=== PATIENT | male | born 1975 | race Caucasian/White ===

== ENCOUNTER 2024-06-13 17:35 | Emergency (ER) | payer SELFPAY ==
[2024-06-13 18:24] LABS: Absolute Eosinophils 0.1 K/uL (0-0.5); Absolute Lymphocytes (CBC) 1.5 K/uL (0.7-4.9); Absolute Monocytes 0.4 K/uL (0.1-1.3); Absolute Neutrophil 4.3 K/uL (1.8-8.0); Basophils % 0.4 % (0-1.3); Eosinophils % 1.7 % (0-4.4); Hematocrit 41.3 % (39.6-49.0); Hemoglobin 14.4 g/dL (13.6-17.9); Lymphocytes % 23.8 % (15.3-44.8); MCH 29.9 pg (27.0-35.0); MCHC 34.9 g/dL (32.0-36.0); MCV 85.8 fL (80-100); MPV 7.3 fL (7.6-11.3); Monocytes % 6.5 % (3.3-12.3); Neutrophils % 67.6 % (41.7-73.7); Nucleated Red Blood Cells % 0.1 % (0-0); Platelets 154 thou/uL (152-406); RBC Red Blood Cell Count 4.82 M/uL (4.33-5.43); Red Cell Distribution Width 14.9 % (12.1-15.2)
--- NOTE | 2024-06-13 18:40 | RAD REPORT ---
EXAM DESCRIPTION: RAD - Chest Single View - 06/13/2024 6:21 pm CLINICAL HISTORY: CHEST PAIN COMPARISON: No comparisons FINDINGS: Lines: None. Lungs: No evidence of edema or pneumonia. Pleural: No significant pleural effusions or pneumothorax. Cardiac: The heart size is within normal limits. Mediastinum: Within normal limits. Bones: No acute fractures. Other: None IMPRESSION: No acute cardiopulmonary disease.
[2024-06-13 18:44] LABS: ALT/SGPT 24 U/L (16-61); Albumin 3.7 g/dL (3.4-5.0); Albumin/Globulin Ratio 1.2 (1.1-1.8); Alkaline Phosphatase 61 U/L (45-117); Anion Gap 9.3 mEq/L (5.0-15.0); BUN Blood Urea Nitrogen 20 mg/dL (7-18); Bicarbonate 29 mEq/L (21-32); Bilirubin Direct 0.2 mg/dL (0-0.2); Bilirubin Indirect, Calculated 0.7 mg/dL (0.2-0.8); Bilirubin Total 0.9 mg/dL (0.2-1.0); Globulin 3.1 g/dL (2.3-3.5); Glomerular Filtration Rate 103 ml/min (=/>90); Glucose Level 315 mg/dL (74-106); Magnesium 1.9 mg/dL (1.6-2.4); Potassium 4.3 mEq/L (3.5-5.1); Protein, Total 6.8 g/dL (6.4-8.2); Sodium Level 134 mEq/L (136-145); Troponin High Sensitivity 8.6 pg/mL (<58.9)
[2024-06-13 18:46] LABS: AST/SGOT < 10 U/L (15-37)
[2024-06-13] MEDS ORDERED: ASPIRIN 81 MG CHEWABLE TABLET ONE (19:25)
[2024-06-13] MEDS ORDERED: NA CHLORIDE 0.9% 1,000 ML ONE (20:23)
--- NOTE | 2024-06-13 21:11 | EDPHYS ---
Physician Documentation [facility] [place] Name: Michael Vu III Age: 49 yrs Sex: Male : 1975 Arrival Date: 06/13/2024 Time: 17:35 Bed 7 Private MD: ED Physician Dixon Lane HPI: 06/13 21:12 This 49 yrs old Male presents to ER via Ambulatory with complaints of Chest Pain. kb 21:12 PT is a 49 year old male who presents for left sided chest pain that started at 1600 kb today. States pain is worse with deep breath. Denies injury, trauma, nuasea, vomiting, fever, cough, congestion, shortness of breath. Historical: - Allergies: 17:53 PENICILLINS; nj1 17:53 Bactrim; nj1 - PMHx: 17:53 None; nj1 - PSHx: 17:53 Operative procedure on knee; nj1 - Immunization history:: Client reports having NOT received the Covid vaccine. - Infectious Disease History:: Denies. - Social history:: Smoking status: Patient denies any tobacco usage or history of. ROS: 17:56 Constitutional: As per HPI kb Exam: 17:55 Constitutional: This is a well developed, well nourished patient who is awake, alert, kb and in no acute distress. Head/Face: Normocephalic, atraumatic. ENT: Moist Mucous membranes Cardiovascular: Regular rate Respiratory: Respirations even and unlabored. No increased work of breathing. Talking in full sentences Abdomen/GI: Soft, non-tender. No distention Skin: Warm, dry with normal turgor. Normal color. MS/ Extremity: Pulses equal, no cyanosis. Neurovascular intact. Full, normal range of motion. Neuro: Awake and alert, GCS 15, oriented to person, place, time, and situation. Moves all extremities. Normal gait. 17:55 ECG was reviewed by the Attending Physician. Vital Signs: 17:51 BP 177 / 99; Pulse 85; Resp 18; Temp 97.8(O); Pulse Ox 95% ; Weight 122.47 kg; Height 6 nj1 ft. 1 in. ; Pain 6/10; 20:49 BP 160 / 82; Pulse 80; Resp 16; Temp 98; Pulse Ox 100% ; jm12 17:51 Body Mass Index 35.62 (122.47 kg, 185.42 cm) nj1 17:51 Pain Scale: Adult nj1 MDM: 17:42 Patient medically screened. kb 21:10 Differential diagnosis: acute MN, abnormal ekg, pleurisy, chest wall pain. Data kb reviewed: vital signs, nurses notes. Consideration of Admission/Observation Escalation of care including admission/observation considered. admission considered for chest pain, but serial troponin normal, HEART score 2. Test considered but Not performed: CT: ct chest to rule out pe considered but pt denies shortness of breath and d-dimer normal. Historians other than the Patient: Spouse/Significant Other: . Counseling: I had a detailed discussion with the patient and/or guardian regarding the historical points, exam findings, and any diagnostic results supporting the discharge/admit diagnosis, lab results, radiology results, the need for outpatient follow up, a family practitioner, to return to the emergency department if symptoms worsen or persist or if there are any questions or concerns that arise at home. 21:16 Special discussion: I have referred the patient to see his PCP for further evaluation kb of high blood pressure. ED course: Pt states he has been diagnosed with diabetes, but is trying to control it with diet. Metformin considered, but pt does not want any medications for diabetes at this time. . 06/13 17:55 Order name: Basic Metabolic Panel; Complete Time: 19:10 kb 06/13 17:55 Order name: CBC with Diff; Complete Time: 18:36 kb 06/13 17:55 Order name: D-Dimer; Complete Time: 19:10 kb 06/13 17:55 Order name: LFT's; Complete Time: 19:10 kb 06/13 17:55 Order name: Magnesium; Complete Time: 19:10 kb 06/13 17:55 Order name: Troponin HS; Complete Time: 19:10 kb 06/13 20:19 Order name: Troponin High Sensitivity; Complete Time: 21:10 kb 06/13 17:55 Order name: XRAY Chest (1 view); Complete Time: 19:10 kb 06/13 17:55 Order name: Cardiac monitoring; Complete Time: 19:45 kb 06/13 17:55 Order name: EKG - Nurse/Tech; Complete Time: 17:58 kb 06/13 17:55 Order name: IV Saline Lock; Complete Time: 18:13 kb 06/13 17:55 Order name: Labs collected and sent; Complete Time: 18:13 kb 06/13 17:55 Order name: O2 Per Protocol; Complete Time: 19:21 kb 06/13 17:55 Order name: O2 Sat Monitoring; Complete Time: 19:21 kb EC:55 Rate is 80 beats/min. Rhythm is regular. QRS [place] is Normal. [place] interval is normal at kb 166 msec. QRS interval is normal at 94 msec. QT interval is normal at 394 msec. Administered Medications: 19:30 Drug: Aspirin PO Chewable Tablet 324 mg PO once; 81 mg tablets x 4 Route: PO; 12 20:10 Drug: NS 0.9% IV 1000 ml IV at 1000 ml once Route: IV; Rate: 1000 ml; Site: right [facility] antecubital; Disposition: 06/14 14:13 Co-signature as Attending Physician, Dixon Lane MD I reviewed the patient's care rn provided by the Advanced Practice Provider and agree with the diagnosis and treatment plan. Disposition Summary: 06/13/24 21:10 Discharge Ordered Notes: Location: Home kb Condition: Stable kb Diagnosis - Chest pain, unspecified kb - Hyperglycemia, unspecified kb Followup: kb - With: Emergency Department - When: As needed - Reason: Worsening of condition Followup: kb - With: Private Physician - When: 2 - 3 days - Reason: Recheck today's complaints, Continuance of care, Re-evaluation by your physician Discharge Instructions: - Discharge Summary Sheet kb - Nonspecific Chest Pain, Adult, [id number] kb - Hyperglycemia, [id number] kb Forms: - Medication Reconciliation Form kb - Antibiotic Education kb - Prescription Opioid Use kb - Patient Portal Instructions kb - Leadership Thank You Letter kb Signatures: Dispatcher [employer] EDWV Alicia Mcgee, FORMAT PROOFREADER-C FORMAT PROOFREADER-Ckb Dixon Lane MD MD rn Jaco, Norma, RN RN nj1 Ana Daly, RN RN jm12 Corrections: (The following items were deleted from the chart) 06/13 17:55 17:55 BASIC METABOLIC PANEL+C.LAB.BRZ ordered. EDMS EDMS 17:55 17:55 CBC+H.LAB.BRZ ordered. EDMS EDMS 17:55 17:55 D-DIMER+COAG.LAB.BRZ ordered. EDMS EDMS 17:55 17:55 HEPATIC FUNCTION+C.LAB.BRZ ordered. EDMS EDMS 17: 17:55 MAGNESIUM+C.LAB.BRZ ordered. EDMS EDMS 17: 17:55 Troponin High Sensitivity+C.LAB.BRZ ordered. EDMS EDMS 17:56 17:55 Chest Single View+RAD.RAD.BRZ ordered. EDMS EDMS
--- NOTE | 2024-06-13 21:11 | ER ---
Nurse's Notes [facility] Name: Michael Vu III Age: 49 yrs Sex: Male : 1975 Arrival Date: 06/13/2024 Time: 17:35 Bed 7 Private MD: Diagnosis: Chest pain, unspecified;Hyperglycemia, unspecified Presentation: 06/13 17:51 Chief complaint: Patient states: Chest pain, onset about 4pm, worse with deep nj1 breathing. No nausea. Coronavirus screen: Vaccine status: Patient reports being unvaccinated. Ebola Screen: Patient denies travel to an Ebola-affected area in the 21 days before illness onset. Initial Sepsis Screen: Does the patient meet any 2 criteria? No. Patient's initial sepsis screen is negative. Does the patient have a suspected source of infection? No. Patient's initial sepsis screen is negative. Risk Assessment: Do you want to hurt yourself or someone else? Patient reports no desire to harm self or others. Onset of symptoms was June 13, 2024 at 16:00. 17:51 Method Of Arrival: Ambulatory [facility] 17:51 Acuity: AMADOR 3 nj1 Triage Assessment: 17:58 General: Appears in no apparent distress. uncomfortable, Behavior is calm, cooperative, nj1 appropriate for age. Pain: Complains of pain in chest Pain currently is 6 out of 10 on a pain scale. at worst was 10 out of 10 on a pain scale. Pain: Aggravated by Deep breathing. Neuro: Level of Consciousness is awake, alert, obeys commands, Oriented to person, place, time, situation. Cardiovascular: Reports chest pain. Respiratory: Airway is patent Respiratory effort is even, unlabored. Historical: - Allergies: 17:53 PENICILLINS; nj1 17:53 Bactrim; nj1 - PMHx: 17:53 None; nj1 - PSHx: 17:53 Operative procedure on knee; nj1 - Immunization history:: Client reports having NOT received the Covid vaccine. - Infectious Disease History:: Denies. - Social history:: Smoking status: Patient denies any tobacco usage or history of. Assessment: 19:44 General: Appears in no apparent distress. Behavior is calm, cooperative. Pain: jm12 Complains of pain in chest. Neuro: No deficits noted. Cardiovascular: Reports chest pain. Respiratory: No deficits noted. GI: No deficits noted. No signs and/or symptoms were reported involving the gastrointestinal system. : No deficits noted. No signs and/or symptoms were reported regarding the genitourinary system. EENT: No deficits noted. No signs and/or symptoms were reported regarding the EENT system. Derm: No deficits noted. No signs and/or symptoms reported regarding the dermatologic system. Musculoskeletal: No deficits noted. No signs and/or symptoms reported regarding the musculoskeletal system. Vital Signs: 17:51 BP 177 / 99; Pulse 85; Resp 18; Temp 97.8(O); Pulse Ox 95% ; Weight 122.47 kg; Height 6 nj1 ft. 1 in. ; Pain 6/10; 20:49 BP 160 / 82; Pulse 80; Resp 16; Temp 98; Pulse Ox 100% ; jm12 17:51 Body Mass Index 35.62 (122.47 kg, 185.42 cm) nj1 17:51 Pain Scale: Adult [facility] ED Course: 17:37 Patient arrived in ED. im 17:42 Alicia Mcgee FNP-C is PHCP. kb 17:[address] MD is Attending Physician. kb 17:53 Triage completed. nj1 17:55 Arm band placed on right wrist. nj1 17:58 EKG completed in triage. Results shown to MD. nj1 18:12 Initial lab(s) drawn, by me, sent to lab. Inserted saline lock: 20 gauge in right ap3 antecubital area, using aseptic technique. Blood collected. 18:13 Basic Metabolic Panel Sent. ap3 18:13 CBC with Diff Sent. ap3 18:13 D-Dimer Sent. ap3 18:13 LFT's Sent. ap3 18:13 Magnesium Sent. ap3 18:13 Troponin HS Sent. ap3 18:23 XRAY Chest (1 view) In Process Unspecified. EDMS 21:26 IV discontinued, intact, bleeding controlled, No redness/swelling at site. Pressure jm12 dressing applied. Administered Medications: 19:30 Drug: Aspirin PO Chewable Tablet 324 mg PO once; 81 mg tablets x 4 Route: PO; jm12 20:10 Drug: NS 0.9% IV 1000 ml IV at 1000 ml once Route: IV; Rate: 1000 ml; Site: right jm12 antecubital; Outcome: 21:10 Discharge ordered by MD. kb 21:27 Discharged to home ambulatory, 12 21:27 Condition: good 21:27 Discharge instructions given to patient, Instructed on discharge instructions, follow up and referral plans. Demonstrated understanding of instructions, follow-up care, 21:29 Patient left the ED. jm12 Signatures: Dispatcher [employer] EDMS Alicia Mcgee, ONELIA-C END TRIMMER-Gillian Bucio RN RN ap3 [place] Phelan RN RN nj1 Oma Mayers Jessica, RN RN jm12
[2024-06-14 07:59] VITALS: BP 160/82; TEMP 98; O2SAT 100
== END 2024-06-13 21:29 | disposition home or self-care (01) ==
LOC: ER 17:35
DX: R07.9 Chest pain, unspecified (principal); R73.9 Hyperglycemia, unspecified
CPT/HCPCS: 36415; 71045; 80048; 80076; 83735; 84484; 85025; 85379; 93005; J7030